=== PATIENT | male | born 1945 | race Caucasian/White ===

== ENCOUNTER 2021-04-23 11:32 | Observation (INO) ==
[2021-04-23 13:27] LABS: Basophils # 0.1 K/mcL (0.0-0.2); Basophils % 0.8 %; Eosinophils % 0.6 %; Hematocrit 47.1 % (37.5-50.1); Hemoglobin 16.9 g/dL (12.9-16.9); Immature Granulocytes % 0.4 % (0-4); Lymphocytes # 1.6 K/mcL (0.6-4.6); Lymphocytes % 21.8 %; Mean Corpuscular HGB Conc 35.9 g/dL (31.6-35.5); Mean Corpuscular Hemoglobin 32.7 pg (28.0-33.3); Mean Corpuscular Volume 91.1 fL (83.0-100.0); Mean Platelet Volume 11.7 fL (9.4-12.4); Monocytes # 0.6 K/mcL (0.0-1.3); Monocytes % 8.4 %; Neutrophils # 4.9 K/mcL (1.6-8.9); Platelet Count 201 K/mcL (140-400); Red Blood Count 5.17 M/mcL (4.19-5.50); Red Cell Distribution Width 12.6 % (11.5-14.5); White Blood Count 7.3 K/mcL (4.3-11.1)
[2021-04-23 13:48] LABS: BUN/Creatinine Ratio 16 (6-26); Blood Urea Nitrogen 28 mg/dL (8-23); Carbon Dioxide 23 mEq/L (23-29); Chloride 109 mEq/L (98-107); Glucose 74 mg/dL (70-105); Osmolality,Calculated 272 (280-300); Sodium 129 mEq/L (136-145); Troponin I < 0.03 ng/mL (< 0.04); eGFR For African Americans 45 (> 60); eGFR For Non-African Americans 37 (> 60)
[2021-04-23] MEDS ORDERED: 0.9 % Sodium Chloride 500 ML IVC ONE ×2 (13:58→16:09)
[2021-04-23] MEDS ORDERED: Naloxone 0.4 MG/ML INJ IVP PRN (16:22)
[2021-04-23] MEDS ORDERED: Melatonin 3 MG TABLET PO PRN (16:22)
[2021-04-23] MEDS ORDERED: Acetaminophen 325 MG TABLET PO PRN (16:22)
[2021-04-23] MEDS ORDERED: *HR* Labetalol 20 MG/4 ML SYRINGE IVP PRN (16:28)
[2021-04-23] MEDS: *HR* Rivaroxaban 15 MG TABLET PO SCH (17:32)
[2021-04-23] MEDS: 0.9 % Sodium Chloride 1,000 ML IVC SCH (17:39)
[2021-04-23 17:48] LABS: Bilirubin,Urine Negative (Negative); Blood,Urine Negative (Negative); Clarity,Urine Clear (Clear); Color,Urine Light-Yellow (Yellow); Glucose,Urine (UA) Normal (Normal); Ketones,Urine Negative (Negative); Leukocyte Esterase,Urine Negative (Negative); Nitrite,Urine Negative (Negative); Protein,Urine Negative (Neg-Trace); Specific Gravity,Urine 1.018 (1.010-1.025); Urobilinogen,Urine Normal (Normal)
[2021-04-23 18:30] LABS: Magnesium 2.2 mg/dL (1.6-2.6); Phosphorous 3.8 mg/dL (2.7-4.5)
[2021-04-24 02:13] LABS: Basophils # 0.1 K/mcL (0.0-0.2); Basophils % 0.9 %; Eosinophils # 0.1 K/mcL (0.0-0.6); Eosinophils % 1.7 %; Immature Granulocytes % 0.4 % (0-4); Lymphocytes # 1.9 K/mcL (0.6-4.6); Lymphocytes % 36.3 %; Mean Corpuscular HGB Conc 34.8 g/dL (31.6-35.5); Mean Corpuscular Hemoglobin 31.9 pg (28.0-33.3); Mean Corpuscular Volume 91.7 fL (83.0-100.0); Mean Platelet Volume 11.3 fL (9.4-12.4); Monocytes # 0.4 K/mcL (0.0-1.3); Monocytes % 7.7 %; Neutrophils # 2.8 K/mcL (1.6-8.9); Platelet Count 152 K/mcL (140-400); Red Blood Count 4.58 M/mcL (4.19-5.50); Red Cell Distribution Width 12.6 % (11.5-14.5); White Blood Count 5.3 K/mcL (4.3-11.1)
[2021-04-24 02:17] LABS: Hemoglobin 14.6 g/dL (12.9-16.9)
[2021-04-24 02:32] LABS: Albumin 3.7 g/dL (3.5-5.7); Albumin/Globulin Ratio 1.5 (1.1-2.2); Bilirubin,Total 0.6 mg/dL (0.3-1.0); Calcium 8.6 mg/dL (8.6-10.3); Globulin 2.5 g/dL (2.4-3.5); Magnesium 2.2 mg/dL (1.6-2.6); Phosphorous 3.7 mg/dL (2.7-4.5); Potassium 4.1 mEq/L (3.5-5.1); Total Protein 6.2 g/dL (6.4-8.9)
[2021-04-24] MEDS: 0.9 % Sodium Chloride 1,000 ML IVC SCH ×2 (03:26→14:20)
[2021-04-24] MEDS: Metoprolol XL (24 HR) Succ 25 MG TAB.ER.24H PO SCH (11:05)
[2021-04-24 13:05] LABS: Uric Acid 10.5 mg/dL (2.3-7.6)
[2021-04-24 15:07] LABS: Sodium, Urine 105.8 mEq/L
[2021-04-24] MEDS: *HR* Rivaroxaban 15 MG TABLET PO SCH (17:37)
[2021-04-25] MEDS: 0.9 % Sodium Chloride 1,000 ML IVC SCH (02:04)
[2021-04-25 02:47] LABS: Mean Platelet Volume 11.4 fL (9.4-12.4); Red Cell Distribution Width 12.4 % (11.5-14.5)
[2021-04-25 02:49] LABS: Basophils % 0.6 %; Eosinophils # 0.1 K/mcL (0.0-0.6); Eosinophils % 1.9 %; Hematocrit 39.6 % (37.5-50.1); Hemoglobin 13.5 g/dL (12.9-16.9); Immature Granulocytes % 0.2 % (0-4); Immature Platelets 7.3 % (1.1-6.1); Lymphocytes # 1.5 K/mcL (0.6-4.6); Lymphocytes % 32.6 %; Mean Corpuscular HGB Conc 34.1 g/dL (31.6-35.5); Mean Corpuscular Hemoglobin 31.8 pg (28.0-33.3); Mean Corpuscular Volume 93.2 fL (83.0-100.0); Monocytes # 0.4 K/mcL (0.0-1.3); Monocytes % 8.6 %; Neutrophils # 2.6 K/mcL (1.6-8.9); Platelet Count 136 K/mcL (140-400); Red Blood Count 4.25 M/mcL (4.19-5.50); Segmented Neutrophils % 56.1 %; White Blood Count 4.7 K/mcL (4.3-11.1)
[2021-04-25 03:04] LABS: Albumin 3.4 g/dL (3.5-5.7); Albumin/Globulin Ratio 1.5 (1.1-2.2); Bilirubin,Total 0.4 mg/dL (0.3-1.0); Calcium 8.4 mg/dL (8.6-10.3); Globulin 2.2 g/dL (2.4-3.5); Potassium 3.9 mEq/L (3.5-5.1); Total Protein 5.6 g/dL (6.4-8.9)
[2021-04-25] MEDS ORDERED: Isovue-370 500 ML BOTTLE IVP ONE (07:13)
[2021-04-25] MEDS: Metoprolol XL (24 HR) Succ 25 MG TAB.ER.24H PO SCH (08:47)
[2021-04-25 10:49] VITALS: BP 135/89; PULSE 106; TEMP 97.6; O2SAT 97
== END 2021-04-25 13:50 | disposition home or self-care (01) ==
LOC: EMEROOARM 11:32 → 3BNU 11:32 → SUATTDRO 16:07 → 3BNU 16:45
PROVIDERS: ADMIT Family Medicine; ATTEND Nurse Practitioner